=== PATIENT | male | born 1965 | race Asian ===

== ENCOUNTER 2017-05-25 06:38 | Day surgery (SDC) | payer OTHER ==
[~2017-05-25] VITALS: Ht 162.6 cm; Wt 68.0 kg
[2017-05-25 07:14] VITALS: BP 128/74
[2017-05-25 09:29] VITALS: BP 113/75
== END 2017-05-25 11:15 | disposition home or self-care (01) ==
LOC: GI 06:38 → OR 07:30 → GI 11:15
PROVIDERS: Internal Medicine Gastroenterology
PROC: 0DJD8ZZ Inspection of Lower Intestinal Tract, Via Natural or Artificial Opening Endoscopic (ICD-10-PCS; principal; 2017-05-25 07:30)
PROC: 0DB68ZX Excision of Stomach, Via Natural or Artificial Opening Endoscopic, Diagnostic (ICD-10-PCS; 2017-05-25 07:30)
DX: Z12.11 Encounter for screening for malignant neoplasm of colon (principal); Z12.0 Encounter for screening for malignant neoplasm of stomach; K22.10 Ulcer of esophagus without bleeding; K25.9 Gastric ulcer, unspecified as acute or chronic, without hemorrhage or perforation; K44.9 Diaphragmatic hernia without obstruction or gangrene; K64.8 Other hemorrhoids; Z68.20 Body mass index [BMI] 20.0-20.9, adult; K31.9 Disease of stomach and duodenum, unspecified
CPT/HCPCS: 43235; J1200; J1610; J2250; J2310; J3010; J3490